=== PATIENT | male | born 1990 | race Caucasian/White ===

== ENCOUNTER 2020-05-24 21:16 | Emergency (ER) | payer OTHER, SELFPAY ==
--- NOTE | ~2020-05-24 | XR_ITS ---
EXAMINATION: XR chest 2V EXAM DATE: 05/24/2020 21:53 INDICATION: Left-sided chest pain. TECHNIQUE: Frontal and lateral projections of the chest obtained and reviewed. There is no prior dayami dy for comparison. FINDINGS: The lungs are clear. There are no pleural effusions. The cardiomediastinal silhouette is within normal limits. There is no pneumothorax suspected. The bones and soft tissues are unremarkab le. IMPRESSION: No acute cardiopulmonary findings. Reviewed, dictated and finalized at location A.
--- NOTE | 2020-05-24 21:17 | ECG_ITS ---
Measurements Intervals [place] Rate: 77 P: 69 NE: 147 QRS: 51 QRSD: 85 T: 60 QT: 336 QTc: 382 Interpretive Statements SINUS RHYTHM WITH SINUS ARRHYTHMIA BASELINE WANDER- V2-V3, V5-V6 NORMAL ECG Electronically Signed On 05-25-2020 6:55:44 CDT by Zach Sheldon D.O.
[2020-05-24 21:18] VITALS: RESP 17
[2020-05-24 21:27] VITALS: BP 145/87; PULSE 78; RESP 16; TEMP 36.6; O2SAT 99
[2020-05-24 21:38] LABS: Basophils Percent Auto 0.5 % (0.2-1.2); Eosinophils Percent Auto 0.5 % (0-4.4); Hematocrit 48.1 % (42.0-52.0); Hemoglobin 16.7 g/dL (14.0-18.0); Immature Granulocyte Absolute 0.02 K/mm3 (0.00-0.031); Immature Granulocyte Percent A 0.3 % (0-0.5); Lymphocytes Absolute Auto 2.74 K/mm3 (0.9-3.2); Lymphocytes Percent Auto 37.6 % (18.3-44.2); Mean Corpuscular HGB Conc 34.7 g/dl (32-36); Mean Corpuscular Hemoglobin 29.8 pg (26-34); Mean Corpuscular Volume 85.7 fl (80-100); Mean Platelet Volume 9.3 fl (7.4-10.4); Monocytes Absolute Auto 0.4 K/mm3 (0.1-0.6); Monocytes Percent Auto 4.9 % (2.6-8.5); Neutrophils Absolute Auto 4.1 K/mm3 (1.3-6.7); Neutrophils Percent Auto 56.2 % (45.5-73.1); Platelet Count Result 304 k/mm3 (150-375); Red Blood Count 5.61 M/mm3 (4.6-6.20); Red Cell Distribution Width 12.8 % (11.5-14.5); White Blood Count 7.3 K/mm3 (4.5-10.0)
[2020-05-24 21:47] LABS: Anion Gap 9 mmol/L (8-16); Blood Urea Nitrogen 8 mg/dL (9-20); Calcium 9.6 mg/dL (8.4-10.2); Carbon Dioxide 31 mmol/L (22-30); Chloride 101 mmol/L (98-107); Estimated CRCL calculation 78 ml/min; Estimated Glomerular Filt Rate > 60; Glucose 95 mg/dL (75-110); Potassium 3.4 mmol/L (3.4-5.0); Sodium 141 mmol/L (137-145)
[2020-05-24 21:48] LABS: Prothrombin Time 13.3 Seconds (11.1-14.7)
[2020-05-24 21:49] LABS: Partial Thromboplastin Time 30.4 SECONDS (22.3-36.8)
[2020-05-24 21:59] LABS: Troponin I < 0.012 ng/mL (0.000-0.034)
[2020-05-25 00:24] VITALS: BP 130/89; PULSE 58; RESP 18; TEMP 36.7; O2SAT 100
[2020-05-25 01:01] LABS: Troponin I < 0.012 ng/mL (0.000-0.034)
[2020-05-25] MEDS: KETOROLAC 30 MG/ML VIAL (*BKC) IV PUSH (01:48)
[2020-05-25 01:51] VITALS: BP 128/103; PULSE 54; RESP 15; O2SAT 98
--- NOTE | 2020-05-25 02:01 | ED.CHESTPAIN ---
HPI - Chest Pain General Chief Complaint: Chest Pain Stated Complaint: chest pains that wont go away Time Seen by Provider: 05/25/20 00:45 Source: patient Mode of arrival: ambulatory Limitations: no limitations History of Present Illness HPI narrative: This patient is a 30 year old male who presents for evaluation of midsternal chest pain. He states this pain has been occurring for 2 months. He states the pain started when he start training at that gym. He states he stopped working out and he continues to have midsternal chest pain. HE states this pain has been constant. He has not tried anything for his pain . His pain does not appear to be worse with exertion. HE denies associated nausea, vomiting, fever, chill, cough or sob. His pain is 4/10. Related Data Home Medications Medication Instructions Recorded Confirmed No Home Medications 05/24/20 05/24/20 Allergies Allergy/AdvReac Type Severity Reaction Status Date / Time No Known Allergies Allergy Mild Verified 05/24/20 21:16 Review of Systems Review of Systems: All systems reviewed & are unremarkable except as noted in HPI and below Constitutional: Constitutional: Denies chills and Denies fever(s) ENT: Denies nasal congestion Cardiovascular: Cardiovascular: Reports chest pain, Denies rapid heart rate and Denies radiating jaw, neck or arm pain Respiratory: Respiratory: Denies cough, Denies dyspnea and Denies wheezing Gastrointestinal: Gastrointestinal: Denies abdominal pain, Denies nausea and Denies vomiting PMFSH Past Medical History Medical History (Updated 05/25/20 @ 03:18 by Marah Potter MD) Patient denies medical problems Social History Social History (Updated 05/25/20 @ 02:02 by Marah Potter MD) Smoking status: Never smoker Gender identity (if verbalized by the patient): Female Exam Const: General: alert Orientation/consciousness: patient oriented x3 HENMT: Head: normocephalic and atraumatic Eyes: EOM: EOMs intact bilaterally Chest: Chest palpation & inspection: tenderness sternum Resp: Effort & Inspection: normal respiratory effort and no retractions Auscultation: clear to auscultation bilaterally Cardio: Rate: regular rate Rhythm: regular rhythm Heart sounds: no murmurs GI: GI Palp: Yes Soft to palpation, No Tenderness to palpation present (GI), No Guarding due to palpation present (GI), No Rigid due to palpation and No Hernia present Skin: General skin exam: normal color Rashes: no rashes Neuro: General: patient oriented x3, moves all extremities and CN's II-XI intact bilaterally Extrem: General: normal to inspection Psych: Mental Status: mental status grossly normal Affect: normal affect Course Reevaluation(s) Reevaluation #1: Patient's pain is atypical. He reports he feels better after toradol. Evaluation has been unremarkable. I discussed he will need to follow up with PCP Date: 05/25/20 Time: 03:15 Vital Signs Vital signs: Vital Signs Respiratory Rate 17 05/24/20 21:18 Temperature 97.8 F 05/25/20 03:23 Pulse Rate 56 L 05/25/20 03:23 Respiratory Rate 16 05/25/20 03:23 Blood Pressure 125/80 05/25/20 03:23 Pulse Oximetry 100 05/25/20 03:23 MDM - Chest Pain Lab Data Attestation: I reviewed the patient's lab results. Result diagrams: 05/24/20 21:28 05/24/20 21:28 Labs: Lab Results 05/24/20 05/24/20 05/24/20 Range/Units 21:28 21:28 21:28 WBC 7.3 (4.5-10.0) K/mm3 RBC 5.61 (4.6-6.20) M/mm3 Hgb 16.7 (14.0-18.0) g/dL Hct 48.1 (42.0-52.0) % MCV 85.7 (80-100) fl MCH 29.8 (26-34) pg MCHC 34.7 (32-36) g/dl RDW 12.8 (11.5-14.5) % Plt Count 304 (150-375) k/mm3 MPV 9.3 (7.4-10.4) fl Immature Gran % (Auto) 0.3 (0-0.5) % Neut % (Auto) 56.2 (45.5-73.1) % Lymph % (Auto) 37.6 (18.3-44.2) % [place] % (Auto) 4.9 (2.6-8.5) % Eos % (Auto) 0.5 (0-4.4) % Baso % (Aut
[2020-05-25 02:23] LABS: D Dimer 0.27 ug/mL (<0.48)
[2020-05-25 03:23] VITALS: BP 125/80; PULSE 56; RESP 16; TEMP 36.6; O2SAT 100
== END 2020-05-25 03:24 | disposition home or self-care (01) ==
PROVIDERS: Emergency Medicine; Emergency Provider General Practice
DX: R07.89 Other chest pain (principal)
CPT/HCPCS: 36415; 71046; 80048; 84484; 85025; 85380; 85610; 85730; 93005; 96374; 99284; J1885